=== PATIENT | male | born 1995 | race Two or more races ===

== ENCOUNTER 2018-12-05 01:25 | Emergency (ER) | payer OTHER ==
[~2018-12-05] VITALS: Ht 172.7 cm; Wt 62.1 kg
[2018-12-05] MEDS ORDERED: BENADRYL25 MG PO (05:31)
[2018-12-05] MEDS ORDERED: MEDROL8 MG PO (05:31)
[2018-12-05] MEDS ORDERED: AMOX-CLAV 875-1 EACH PO (05:31)
== END 2018-12-05 05:39 | disposition home or self-care (01) ==
LOC: ER 01:25
DX: T78.3XXA Angioneurotic edema, initial encounter (principal)

== ENCOUNTER 2018-12-11 00:02 | Emergency (ER) | payer OTHER ==
[~2018-12-11] VITALS: Ht 172.7 cm; Wt 61.2 kg
[~2018-12-11 00:02] MED LIST: AMOX-CLAV 875-1 EACH PO; BENADRYL25 MG PO; MEDROL8 MG PO
[2018-12-11] MEDS ORDERED: BACTRIM DS TAB1 EACH PO (05:02)
[2018-12-11] MEDS ORDERED: MUPIROCIN22 GM TOP (05:02)
== END 2018-12-11 05:08 | disposition home or self-care (01) ==
LOC: ER 00:02
DX: J34.89 Other specified disorders of nose and nasal sinuses (principal)